=== PATIENT | male | born 1990 | race Caucasian/White ===

== ENCOUNTER 2021-02-27 10:09 | Emergency (ER) | payer OTHER ==
[~2021-02-27] VITALS: Ht 177.8 cm; Wt 90.7 kg
[2021-02-27 10:21] VITALS: BP 138/65
[2021-02-27] MEDS ORDERED: KETOROLAC 30 MG/ML VIAL IM ONE (10:50)
[2021-02-27] MEDS ORDERED: DEXAMETHASONE 10 MG/ML VIAL PO ONE (10:50)
--- NOTE | 2021-02-27 11:09 | NUR ---
30 Y MALE THAT WAS REFERRED FROM CLINIC FOR TONSILLITIS. C/O SORE THROAT X 5 DAYS. PT STATES HIS THROAT PAIN HAS SLOWLY GOTTEN WORSE AND IS NOT RADIATING TO HIS R EAR/JAW. PT DENIES ANY SOB AND LUNG SOUNDS CLEAR UPON ASCULATION. PT DENIES ANY TYPE OF CONGESTION AT THIS MOMENT. COVID TESTED NEGATIVE LAST MONTH. PMH: DENIES NKA
--- NOTE | 2021-02-27 12:20 | NUR ---
PATIENT RESTING IN BED WITH EYES OPEN AND ON PHONE. BED IN LOWEST POSITION WITH BRAKES APPLIED. VITAL SIGNS STABLE. WILL CONTINUE TO MONITOR
[2021-02-27] MEDS ORDERED: NAPR-54 PO ×2 (12:40→14:30)
[2021-02-27] MEDS ORDERED: ACET-8386 PO ×2 (12:40→14:30)
[2021-02-27 13:59] VITALS: BP 117/54
--- NOTE | 2021-02-27 14:00 | NUR ---
Patient discharged with v/s stable. Written and verbal after care instructions given PHARYNGITIS and explained. Patient alert, oriented and verbalized understanding of instructions. Ambulatory with steady gait. All questions addressed prior to discharge. ID band removed. Patient advised to follow up with PMD. Rx of NORCO, AND NAPROXEN given. Patient educated on indication of medication including possible reaction and side effects. Opportunity to ask questions provided and answered.
== END 2021-02-27 14:00 | disposition home or self-care (01) ==
LOC: MED 10:09
DX: J02.9 Acute pharyngitis, unspecified (principal); Z79.899 Other long term (current) drug therapy; Z98.890 Other specified postprocedural states
CPT/HCPCS: 96372; 99284; J1100; J1885